=== PATIENT | female | born 2000 | race Caucasian/White ===

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

== ENCOUNTER 2019-12-02 11:55 | Outpatient (REF) | payer OTHER, SELFPAY ==
[2019-12-03 14:46] LABS: Chlamydia Result Negative (Negative); GC Result Negative (Negative)
== END 2019-12-02 12:15 ==
LOC: LBN 11:55
PROVIDERS: PCP Pediatrics; Visit Provider Nurse Practitioner Women's Health
DX: Z11.3 Encounter for screening for infections with a predominantly sexual mode of transmission (principal)
CPT/HCPCS: 87491; 87591

== ENCOUNTER 2020-01-15 12:51 | Outpatient (REF) | payer OTHER, SELFPAY | END 2020-01-15 13:11 | LOC: LBN 12:51 | PROVIDERS: PCP Pediatrics; Visit Provider Nurse Practitioner Family | DX: R35.0 Frequency of micturition (principal) | CPT/HCPCS: 87086 ==

== ENCOUNTER 2020-02-12 12:25 | Outpatient (REF) | payer OTHER, SELFPAY ==
[2020-02-14 18:28] LABS: COVID-19 RT-PCR Result Negative ((See Note))
== END 2020-02-12 12:45 ==
LOC: LBN 12:25
PROVIDERS: PCP Pediatrics; Visit Provider Nurse Practitioner Adult Health
DX: Z11.59 Encounter for screening for other viral diseases (principal)
CPT/HCPCS: U0003

== ENCOUNTER 2020-06-08 11:30 | Outpatient (CLI) | payer OTHER, SELFPAY ==
[2020-06-14 09:50] LABS: COVID-19 RT-PCR UVMMC Result Negative (Negative)
== END 2020-06-08 11:50 ==
PROVIDERS: PCP Pediatrics; Visit Provider Nurse Practitioner Family
DX: Z11.59 Encounter for screening for other viral diseases (principal)
CPT/HCPCS: U0003

== ENCOUNTER 2020-08-05 14:50 | Outpatient (REF) | payer OTHER, SELFPAY ==
[2020-08-05 19:00] LABS: TSH (W/Ref FT4) 0.98 uIU/mL (0.36-3.74)
== END 2020-08-05 14:51 | disposition home or self-care (01) ==
LOC: LBN 14:50
PROVIDERS: PCP Nurse Practitioner Adult Health; Visit Provider Nurse Practitioner Adult Health
DX: F41.9 Anxiety disorder, unspecified (principal)
CPT/HCPCS: 84443

== ENCOUNTER 2021-01-06 14:55 | Outpatient (REF) | payer OTHER, SELFPAY ==
--- NOTE | 2021-01-06 13:20 | PAPFT_PTH ---
PATIENT: Bhavani Kendrick LOC: [facility] U#:[id number] AGE/SX: 20/F ROOM: RE01/06/[address]: GUME Clayton : 2000 BED: DIS: 01/06/2021 SPEC #: [id number] RECD: 01/06/21 17:01 STATUS: RADHA REFabricio #: [id number] AMAN: 01/06/21 13:[address]: Elba Jones DEPT: [facility] Cytology RECD BY: Radha Gonsales ENTERED: 01/06/21 17:01 SP TYPE: PAPFT OTHR DR: Mercedes Dill APRN Tissues: 1 - CX/ENDOCX FOR PAP SMEARS Procedures: PAP THIN PREP/[facility] Screening Comments: [id number]
[2021-01-09 14:05] LABS: Chlamydia Result Negative (Negative); GC Result Negative (Negative)
== END 2021-01-06 14:56 | disposition home or self-care (01) ==
LOC: LBN 14:55
PROVIDERS: PCP Nurse Practitioner Adult Health; Visit Provider Nurse Practitioner Family
DX: Z11.3 Encounter for screening for infections with a predominantly sexual mode of transmission (principal); Z12.4 Encounter for screening for malignant neoplasm of cervix
CPT/HCPCS: 87491; 87591; 88142

== ENCOUNTER 2023-05-27 12:14 | Outpatient (REF) | payer OTHER, SELFPAY | END 2023-05-27 12:15 | disposition home or self-care (01) | LOC: LBN 12:14 | PROVIDERS: PCP Nurse Practitioner Adult Health; Visit Provider Family Medicine | DX: R30.0 Dysuria (principal) | CPT/HCPCS: 87086 ==

== ENCOUNTER 2023-09-09 14:52 | Outpatient (REF) | payer OTHER, SELFPAY ==
[2023-09-09 15:10] LABS: Bilirubin Negative (Negative); Blood Moderate (Negative); Clarity Clear (Clear); Glucose Negative (Negative); Ketones Negative (Negative); Leukocyte Esterase Negative (Negative); Nitrite Negative (Negative); Specific Gravity 1.025 (1.005-1.025); Urobilinogen 0.2 mg/dL (Up to 0.2)
[2023-09-09 15:19] LABS: Bacteria Negative HPF (Negative); C & S Indicated? No; Casts Negative LPF (Negative); Crystals Mod Calcium Oxalate HPF (Negative); Epithelial Cells Few HPF (Negative); Mucus Trace (Negative); WBC Negative HPF (0-5)
== END 2023-09-09 14:53 | disposition home or self-care (01) ==
LOC: LBN 14:52
PROVIDERS: PCP Nurse Practitioner Adult Health; Visit Provider Nurse Practitioner Adult Health
DX: R30.0 Dysuria (principal); R82.998 Other abnormal findings in urine; N32.89 Other specified disorders of bladder
CPT/HCPCS: 81003; 81015

== ENCOUNTER 2023-12-25 13:21 | Outpatient (REF) | payer OTHER, SELFPAY ==
--- NOTE | 2023-12-25 13:15 | PAPFT_PTH ---
PATIENT: Bhavani Kendrick LOC: [facility] U#:[id number] AGE/SX: 23/F ROOM: RE12/25/[address]: Anabell Penn NP : 2000 BED: DIS: 12/25/2023 SPEC #: [id number] RECD: 12/25/23 17:27 STATUS: RADHA REFabricio #: [id number] AMAN: 12/25/23 13:[address]: Anabell Penn NP DEPT: [facility] Cytology RECD BY: Radha Gonsales ENTERED: 12/25/23 17:28 SP TYPE: PAPFT OT DR: Mercedes Dill APRN Tissues: 1 - CX/ENDOCX FOR PAP SMEARS Procedures: PAP THIN PREP/[facility] Screening Comments: [id number]
== END 2023-12-25 13:22 | disposition home or self-care (01) ==
LOC: LBN 13:21
PROVIDERS: PCP Nurse Practitioner Adult Health; Visit Provider Nurse Practitioner Women's Health
DX: N76.0 Acute vaginitis (principal); B37.9 Candidiasis, unspecified
CPT/HCPCS: 88142; 87480; 87510; 87660

== ENCOUNTER 2024-03-15 16:32 | Emergency (ER) | payer OTHER, SELFPAY ==
[2024-03-15] VITALS (7 sets, daily range): BP systolic 106–112; BP diastolic 61–66; PULSE 94–132; RESP 15–33; TEMP 36.7–37.2; O2SAT 98–99
--- OUTSIDE RECORDS SUMMARY | 2024-03-15 16:42 | XMS_ITS | Encounter Summary ---
Author Organization [facility] Address [address] [place] [id number] Care Team Providers Care Medical Research Tech Name Role Phone Mercedes Dill EDISON Primary Care Provider +1 [phone] Encounter Details Date Type Department Care Team (Late st Contact Info) Description 06/08/2020 Lab Requisition [facility] Pathology & Laboratory Medicine - [address] [address] Outr Resulting Lab, Provider Social History Tobacco Use Types Packs/Day Years Used Date Smoking Tobacco: Never Assessed Interpersonal Safety Answer Date Record ed Physically Hurt Never 05/17/2020 Verbally Threaten Not on file 05/17/2020 Sex and Gender Information Value Date Recorded Sex Assigned at Not on file Gender Identity Not on file Sexual Orientation Not on file documented as of this encounter Plan of Treatment Not on file documented as of this encounter Procedures Procedure Name Priority Date/Time Associated Diagnosis Comments ZZCOVID-19 TEST [facility] PCR Today 06/08/2020 9:12 EST COVID-19 TESTING Routine 06/08/2020 9:12 EST documented in this encounter Results * COVID-19 TEST [facility] PCR (06/08/2020 9:12 EST) Swab ENTIRE NASOPHARYNX / Unknown 06/08/2020 9:12 EST 06/08/2020 16:45 EST Provider Outr Resulting Lab MICROBIOLOGY - GENERAL ORDERABLES [facility] [address] [place] [address] * COVID-19 TESTING (06/08/2020 9:12 EST) COVID-19 rt-PCR Result Negative Negative 06/14/2020 9:42 EST [facility] Comment: Negative results do not preclude 2019-nCoV infection and should not be used as the sole basis for treatment or other patient management decisions. Negative results must be combined with clinical observations, patient history, and epidemiological information. This test was developed and its performance characteristics determined by [facility]. It has not been cleared or approved by the US Food and Drug Administration. FDA does not require this test to go through premarket FDA review. This test is used for clinical purposes. It should not be regarded as investigational or for research. This laboratory is certified under the Clinical Laboratory Improvement Amendments (CLIA) as qualified to perform high complexity clinical laboratory testing. This test is based on the CDC COVID-19 Emergency Use Authorization (EUA) assay, with minor modification as defined by the FDA Performed on the DoApp 7 Flex. Performing Lab Quantstud[employer] 7 [facility] Lab 06/14/2020 9:42 EST [facility] Swab 06/08/2020 9:12 EST 06/08/2020 16:45 EST Provider Outr Resulting Lab MICROBIOLOGY - GENERAL ORDERABLES Performing Organization Address City/State/[facility] Co de Phone Number [facility] [address] [place] [address] documented in this encounter Visit Diagnoses Not on filedocumented in this encounter Care Teams Medical Research Tech Relationship Specialty Start Date End Date Mercedes Dill APRN [address] [place] [address] PCP - General Family Medicine - Hospital Medicine 06/24/23 documented as of this encounter
--- OUTSIDE RECORDS SUMMARY | 2024-03-15 16:42 | XMS_ITS | Encounter Summary ---
Author Organization [facility] Address [address] [place] [address] Care Team Providers Care Cloud Developer Name Role Phone Mercedes Dill EDISON Primary Care Provider +1 [phone] Encounter Details Date Type Department Care Team (Late st Contact Info) Description 01/07/2021 Lab Requisition [facility] Pathology & Laboratory Medicine - [address] [id number] Outr Resulting Lab, Provider Social History Tobacco [...] Procedure Name Priority Date/Time Associated Diagnosis Comments CHLAMYDIA/N. GONORRHOEAE AMPLIFIED NUCLEIC ACID Routine 01/06/2021 13:20 EDT documented in this encounter Results * CHLAMYDIA/N. GONORRHOEAE AMPLIFIED RNA (01/06/2021 13:20 EDT) Neisseria gonorrhoeae Result Negative Negative 01/09/2021 13:59 EDT [facility] Chlamydia trachomatis Result Negative Negative 01/09/2021 13:59 EDT [facility] Swab ENTIRE ENDOCERVIX / Unknown 01/06/2021 13:20 EDT 01/07/2021 21:26 EDT Provider Outr Resulting Lab MICROBIOLOGY - GENERAL ORDERABLES [facility] [address] [place] [address] documented in this encounter Visit Diagnoses Not on filedocumented in this encounter Care Teams Cloud Developer Relationship Specialty Start Date End Date Mercedes Dill APRN [address] [place] [address] PCP - General Family Medicine - Hospital Medicine 06/24/23 documented as of this encounter
--- OUTSIDE RECORDS SUMMARY | 2024-03-15 16:42 | XMS_ITS | Referral Summary ---
Author Organization [facility] Address [address] [place] [address] Care Team Providers Care Director Employment Name Role Phone Mercedes Dill GEAR FINISHER Primary Care Provider +1 [phone] Encounters Date Type Department Care Team Description 12/27/2023 Lab Requisition [facility] Pathology & Laboratory Medicine - [address] [address] Anabell Penn APRN Acute vaginitis from Last 3 Months Social History Tobacco Use Types Packs/Day Years Used Date Smoking Tobacco: Never Assessed Interpersonal Safety Answer Date Record ed Physically Hurt Never 05/17/2020 Verbally Threaten Not on file 05/17/2020 Sex and Gender Information Value Date Recorded Sex Assigned at Not on file Gender Identity Not on file Sexual Orientation Not on file Plan of Treatment Not on file Procedures Procedure Name Priority Date/Time Associated Diagnosis Comments PAP TEST Today 12/25/2023 13:15 EDT Acute vaginitis from Last 3 Months Results * PAP TEST (12/25/2023 13:15 EDT) Specimens A. Cervix and/or Endocervix , ThinPrep Imaging System with Manual Evaluation 12/31/2023 14:11 [facility] Specimen Adequacy Satisfactory for Evaluation - transformation zone component present 12/31/2023 14:11 [facility] General Categorization Negative for intraepithelial lesion or malignancy 12/31/2023 14:11 [facility] Descriptive Diagnosis Fungal organisms present morphologically consistent with Diana species. 12/31/2023 14:11 [facility] Attestation . 12/31/2023 14:11 EDT [facility] at 1411 Clinical History See below 12/31/19 14:11 EDT [facility] Performing Lab [facility] 12/31/2023 14:11 EDT [facility] Scanned Images 12/31/2023 14:11 EDT [facility] Pap Test CERVIX UTERI STRUCTURE / Unknown 12/25/2023 13:15 EDT 12/27/2023 15:15 EDT Anabell Penn APRN PATHOLOGY ORDERAB LES [facility] [address] [place] [address] from Last 3 Months Care Teams Director Employment Relationship Specialty Start Date End Date Mercedes Dill APRN [address] [place] [address] PCP - General Family Medicine - [facility] 06/24/23
--- OUTSIDE RECORDS SUMMARY | 2024-03-15 16:42 | XMS_ITS | Encounter Summary ---
Author Organization [facility] Address [address] [place] [address] Care Team Providers Care Registered Nurse Cardiac Name Role Phone Mercedes Dill EDISON Primary Care Provider +1 [phone] Encounter Details Date Type Department Care Team (Late st Contact Info) Description 01/09/2021 Lab Requisition [facility] Pathology & Laboratory Medicine - [address] [address] Elba Jones, [address] [place] [address] Encounter for other general examination Social History Tobacco Use Types Packs/Day Years [...] Date/Time Associated Diagnosis Comments PAP TEST Today 01/06/2021 13:20 EDT Encounter for other general examination documented in this encounter Results * PAP TEST (01/06/2021 13:20 EDT) Specimens A. Cervix and/or Endocervix , ThinPrep Imaging System with Manual Evaluation 01/19/2021 11:41 EDT [facility] Specimen Adequacy Satisfactory for Evaluation - transformation zone component present 01/19/2021 11:41 EDT [facility] General Categorization Negative for intraepithelial lesion or malignancy 01/19/2021 11:41 EDT [facility] Descriptive Diagnosis Reactive cellular changes associated with inflammation present (includes repair). 01/19/2021 11:41 EDT [facility] Attestation By the signature below, the attending physician certifies that they have personally conducted a gross and/or microscopic examination of the described specimens and rendered or confirmed the above diagnosis. 01/19/2021 11:41 EDT [facility] at 1141 Clinical History See below 01/20/20 11:41 EDT [facility] Performing Lab [facility] 01/19/2021 11:41 EDT [facility] Scanned Images 01/19/2021 11:41 EDT [facility] Papanicolaou smear specimen (specimen) CERVIX UTERI STRUCTURE / Unknown 01/06/2021 13:20 EDT 01/09/2021 11:13 EDT Elba Jones TECHNICAL ACCOUNT MANAGER PATHOLOGY ORDERABLES [facility] [address] [place] [address] documented in this encounter Visit Diagnoses Diagnosis Encounter for other general examination documented in this encounter Care Teams Registered Nurse Cardiac Relationship Specialty Start Date End Date Mercedes Dill APRN [address] [place] [address] PCP - General Family Medicine - Hospital Medicine 06/24/23 documented as of this encounter
--- OUTSIDE RECORDS SUMMARY | 2024-03-15 16:42 | XMS_ITS | Encounter Summary ---
Author Organization [facility] Address [address] [place] [address] Care Team Providers Care Inventory Clerk Name Role Phone Mercedes Dill EDISON Primary Care Provider +1 [phone] Encounter Details Date Type Department Care Team (Late st Contact Info) Description 02/12/2020 Lab Requisition [facility] Pathology & Laboratory Medicine - [address] [id number] Outr Resulting Lab, Provider Social History Tobacco Use Types Packs/Day Years Used Date Smoking Tobacco: Never Assessed Sex and Gender Information Value Date Recorded Sex Assigned at Not on file Gender Identity Not on file Sexual Orientation Not on file documented as of this encounter Plan of Treatment Not on file documented as of this encounter Procedures Procedure Name Priority Date/Time Associated Diagnosis Comments DO NOT ORDER STANDALONE - BROAD COVID TEST Today 02/12/2020 11:15 EDT COVID-19 TESTING Routine 02/12/2020 11:1 5 EDT documented in this encounter Results * DO NOT ORDER STANDALONE - BROAD COVID TEST (02/12/2020 11:15 EDT) Swab ENTIRE NASOPHARYNX / Unknown 02/12/2020 11:15 EDT 02/12/2020 20:58 EDT Provider Outr Resulting Lab MICROBIOLOGY - GENERAL ORDERABLES [facility] [place], [place] * COVID-19 TESTING (02/12/2020 11:15 EDT) COVID-19 rt-PCR Result Negative Not Detected, Negative 02/14/2020 18:24 EDT [facility] Performing Lab [facility] 02/14/2020 18:24 EDT [facility] Swab 02/12/2020 11:1 5 EDT 02/12/2020 20:58 EDT Provider Outr Resulting Lab MICROBIOLOGY - GENERAL ORDERABLES Performing Organization Address City/State/[facility] Co de Phone Number [facility] [address] [place] [address] documented in this encounter Visit Diagnoses Not on filedocumented in this encounter Care Teams Inventory Clerk Relationship Specialty Start Date End Date Mercedes Dill APRN [address] [place] [address] PCP - General Family Medicine - Hospital Medicine 06/24/23 documented as of this encounter
--- OUTSIDE RECORDS SUMMARY | 2024-03-15 16:42 | XMS_ITS | Encounter Summary ---
Author Organization [facility] Address [address] [place] [address] Care Team Providers Care Rail Maintenance Worker Name Role Phone Mercedes Dill EDISON Primary Care Provider +1 [phone] Encounter Details Date Type Department Care Team (Late st Contact Info) Description 12/02/2019 Lab Requisition [facility] Pathology & Laboratory Medicine - [address] [address] Outr Resulting Lab, Provider Social History Tobacco [...] Comments CHLAMYDIA/N. GONORRHOEAE AMPLIFIED NUCLEIC ACID Routine 12/02/2019 10:07 EDT documented in this encounter Results * CHLAMYDIA/N. GONORRHOEAE AMPLIFIED RNA (12/02/2019 10:07 EDT) Neisseria gonorrhoeae Result Negative Negative 12/03/2019 14:41 EDT [facility] Chlamydia trachomatis Result Negative Negative 12/03/2019 14:41 EDT [facility] Urine URINE / Unknown 12/02/2019 1 0:07 EDT 12/02/2019 21:12 EDT Narrative [facility] - 12/03/2019 14:41 EDT A first catch urine specimen is acceptable for detection of Gonorrhea and Chlamydia, but might detect up to 10% fewer infections when compared with vaginal and endocervical swab samples. Provider Outr Resulting Lab MICROBIOLOGY - GENERAL ORDERABLES [facility] [address] [place] [address] documented in this encounter Visit Diagnoses Not on filedocumented in this encounter Care Teams Rail Maintenance Worker Relationship Specialty Start Date End Date Mercedes Dill APRN [address] [place] [id number] PCP - General Family Medicine - Hospital Medicine 06/24/23 documented as of this encounter
--- OUTSIDE RECORDS SUMMARY | 2024-03-15 16:42 | XMS_ITS | Encounter Summary ---
Author Organization [facility] Address [address] [place] [address] Care Team Providers Care Glass Polisher Name Role Phone Mercedes Dill [employer] SUPERINTENDENT Primary Care Provider +1 [phone] Encounter Details Date Type Department Care Team (Late st Contact Info) Description 12/27/2023 Lab Requisition [facility] Pathology & Laboratory Medicine - [address] [address] Anabell Penn APRN [address] [place] [phone] Acute vaginitis Social History Tobacco Use Types Packs/Day Years [...] TEST Today 12/25/2023 13:15 EDT Acute vaginitis documented in this encounter Results * PAP TEST (12/25/2023 13:15 EDT) Specimens A. Cervix and/or Endocervix , ThinPrep Imaging System with Manual Evaluation 12/31/2023 14:11 EDT [facility] Specimen Adequacy Satisfactory for Evaluation - transformation zone component present 12/31/2023 14:11 EDT [facility] General Categorization Negative for intraepithelial lesion or malignancy 12/31/2023 14:11 EDT [facility] Descriptive Diagnosis Fungal organisms present morphologically consistent with Diana species. 12/31/2023 14:11 EDT [facility] Attestation . 12/31/2023 14:11 EDT [facility] at 1411 Clinical History See below 12/31/19 14:11 EDT [facility] Performing Lab [facility] 12/31/2023 14:11 EDT [facility] Scanned Images 12/31/2023 14:11 EDT [facility] Pap Test CERVIX UTERI STRUCTURE / Unknown 12/25/2023 13:15 EDT 12/27/2023 15:15 EDT Merritt A Isamar [employer] SUPERINTENDENT PATHOLOGY ORDERAB LES [facility] [address] [place] [address] documented in this encounter Visit Diagnoses Diagnosis Acute vaginitis Vaginitis and vulvovaginitis, unspecified documented in this encounter Care Teams Glass Polisher Relationship Specialty Start Date End Date Mercedes Dill, [employer] SUPERINTENDENT [address] [place] [address] PCP - General Family Medicine - Hospital Medicine 06/24/23 documented as of this encounter
--- OUTSIDE RECORDS SUMMARY | 2024-03-15 16:42 | XMS_ITS | Clinical Summary ---
Author Organization [facility] Address [address] [place] [address] Care Team Providers Care Ice Guard Skating Rink Name Role Phone Mercedes Dill [employer] CONSULTANT Primary Care Provider +1 [phone] Encounters Date Type Department Care Team Description 12/27/2023 Lab Requisition [facility] Pathology & Laboratory Medicine - [address] [address] Anabell Penn APRN Acute vaginitis from Last [...] Orientation Not on file Plan of Treatment Health Maintenance Due Date Last Done Comments Hepatitis C Screen 2000 Hepatitis B Vaccine (1 of 3 - 19+ 3-dose series) 08/17 COVID-19 Vaccine ( season) 2023 Procedures Procedure Name Priority Date/Time Associated Diagnosis Comments PAP TEST Today 12/25/2023 13:15 EDT Acute vaginitis from Last 3 Months Results * PAP TEST (12/25/2023 13:15 EDT) Specimens A. Cervix and/or Endocervix , ThinPrep Imaging System with Manual Evaluation 12/31/2023 14:11 EDT [facility] Specimen Adequacy Satisfactory for Evaluation - transformation zone component present 12/31/2023 14:11 EDT [facility] General Categorization Negative for intraepithelial lesion or malignancy 12/31/2023 14:11 EDT [facility] Descriptive Diagnosis Fungal organisms present morphologically consistent with Diana species. 12/31/2023 14:11 EDT [facility] Attestation . 12/31/2023 14:11 EDT [facility] at 1411 Clinical History See below 12/31/19 14:11 EDT [facility] Performing Lab [facility] 12/31/2023 14:11 EDT [facility] Scanned Images 12/31/2023 14:11 EDT [facility] Pap Test CERVIX UTERI STRUCTURE / Unknown 12/25/2023 13:15 EDT 12/27/2023 15:15 EDT Anabell Penn APRN PATHOLOGY ORDERAB LES [facility] [address] [place] [address] from Last 3 Months Care Teams Ice Guard Skating Rink Relationship Specialty Start Date End Date Mercedes Dill APRN [address] [place] [address] PCP - General Family Medicine - [facility] 06/24/23
--- NOTE | 2024-03-15 17:00 | RT.EKG_ITS ---
APPROVED REPORT Exam: Resting ECG Reason for Exam: tachy Patient Location: E HR:102 bpm ECG Measurements Heart Rate 102 AXIS ME 115 P 41 QRSd 76 QRS 68 QT 314 T 38 QTc 411 Conclusion Sinus tachycardia...rate> 99 sinus tach, normal axis, non ischemic
--- NOTE | 2024-03-15 17:45 | DI.RAD_ITS ---
Exam(s) XR CHEST 2V PA LATERAL EXAM: XR CHEST 2V PA LATERAL CLINICAL HISTORY: cough TECHNIQUE: 2D digital imaging was performed of the chest. Two images were obtained. PA and lateral views were obtained. COMPARISON: CR CHEST 2 VIEWS PA,LAT from 01/27/2015 FINDINGS: MEDIASTINUM: Normal. HEART: Normal. PULMONARY VASCULATURE: Normal. LUNGS: Clear. PLEURAL SPACE: No pleural effusion or pneumothorax. BONE:Within normal limits for the patient's age. OTHER FINDINGS:Normal. IMPRESSION: No acute pulmonary findings. DATA REPOSITORY: RADIATION DOSE DELIVERED:
--- NOTE | 2024-03-15 18:05 | ED.GENADUL_ITS ---
Discharge Plan Disposition Patient Disposition: Home Condition: Improving Discharge Details Chief Complaint: RespSymp Clinical Impression: URI (upper respiratory infection) Primary Care Provider: Mercedes Dill ED Provider: Caesar Raymundo Home Meds and New Rx's Prescriptions: No Action albuterol sulfate [ProAir HFA] 90 mcg/actuation HFA aerosol inhaler 2 puff Inhalation Q4H PRN Qty: 1 4RF Rx Instructions: 2 puffs with spacer every 4hr as needed for cough/wheeze benzonatate 100 mg capsule 100 mg PO BID-TID PRN (Reason: cough) Qty: 20 0RF codeine-guaifenesin 10-100 mg/5 mL liquid 5 ml PO Q6H PRN (Reason: cough) Qty: 118 0RF prednisone 10 mg tablet 10 mg PO DAILY 5 Days Qty: 5 0RF Patient Comments: pt started this med today (DME) Aerochamber Plus Flow-Vu 1 EACH spacer 1 ea Miscellaneous PRN Qty: 2 Patient Comments: Please dispense #2- 1 for mom's and 1 for dad's households. Any brand. Mouthpiece OK- doesn't need mask. Rx Instructions: Use with inhalers. Nexplanon 68 MG implant 68 mg SQ ONCE Qty: 1 doxepin 6 mg tablet 3 - 6 mg PO QHS PRN (Reason: sleep) Qty: 90 1RF Rx Instructions: Sleep difficulty--take within 30-min of bedtime; may start with 3mg and increase if needed Discharge Instructions Instructions: Upper Respiratory Infection ED Additional Instructions: Please follow-up with your primary care physician. Please return to the emergency department for any worsening symptoms HPI General Date/Time Provider Initiated Documentation: 03/15/24 17:02 . HPI Narrative: 23-year-old female presents with 1 week of nasal congestion cough nonproductive diagnosis viral syndrome, developed hives this evening now resolved. No trouble breathing or speaking. Patient endorses chronic tachycardia related to chronic anxiety. Denies history of thromboembolic disease denies history of coronary disease. Related Data Home Medications ?Medication ?Instructions ?Recorded ?Confirmed inhalational spacing device #2 units 11/19/14 03/15/24 (Aerochamber Plus Flow-Vu) etonogestrel 68 mg subdermal 68 mg SQ ONCE #1 implant 11/13/16 03/15/24 implant (Nexplanon) albuterol sulfate 90 mcg/actuation 2 puff inhalation Q4H PRN ##1 05/27/23 03/15/24 aerosol inhaler (ProAir HFA) doxepin 6 mg tablet 3 - 6 mg (0.5 - 1 x 6 mg) PO QHS 06/27/23 03/15/24 PRN sleep #90 tabs benzonatate 100 mg capsule 100 mg PO BID-TID PRN cough #20 03/11/24 03/15/24 caps codeine 10 mg-guaifenesin 100 mg/5 5 ml PO Q6H PRN cough #118 mL 03/13/24 03/15/24 mL oral liquid prednisone 10 mg tablet 10 mg PO DAILY 5 days #5 tabs 03/13/24 03/15/24 Previous Rx's ?Medication ?Instructions ?Recorded albuterol sulfate 90 mcg/actuation 2 puff inhalation Q4H PRN ##1 05/27/23 aerosol inhaler (ProAir HFA) doxepin 6 mg tablet 3 - 6 mg (0.5 - 1 x 6 mg) PO QHS 06/27/23 PRN sleep #90 tabs benzonatate 100 mg capsule 100 mg PO BID-TID PRN cough #20 03/11/24 caps codeine 10 mg-guaifenesin 100 mg/5 5 ml PO Q6H PRN cough #118 mL 03/13/24 mL oral liquid prednisone 10 mg tablet 10 mg PO DAILY 5 days #5 tabs 03/13/24 Allergies Allergy/AdvReac Type Severity Reaction Status Date / Time trazodone AdvReac Severe Headache Verified 03/13/24 13:23 General Stated Complaint: RespSymp ANITA: 3 Exam Narrative Exam Narrative: Alert oriented resting comfortably Sinus congestion Normal speech swelling secretions Lungs clear bilaterally no wheezes rales or rhonchi, no tachypnea no retractions no stridor Normal heart sounds no murmurs rubs or gallops, rate approximate 100 bpm Moving all extremities without deficit no peripheral edema Calm cooperative normal affect Course Vital Signs Vital signs: Vital Signs Temperature 37.2 C 03/15/24 16:47 Pulse 132 H 03/15/24 16:47 Respiratory Rate 16 03/15/24 16:47 Blood Pressure 106/66 03/15/24 16:47 Pulse Oximetry 98 03/15/24 16:47 Temperature 37.2 C 03/15/24 16:47 Pulse 132 H 03/15/24 16:47 Respiratory Rate 16 03/15/24 16:47 Respiratory Effort Normal, Non-Labored 03/15/24 17:58 Respiratory Depth Normal 03/15/24 17:58 Blood Pressure 106/66 03/15/24 16:47 Pulse Oximetry 98 03/15/24 16:47 Pain Level 0 03/15/24 16:47 Medical Decision Making 23-year-old female presents with nasal congestion cough over the last week, noted to be tachycardic on arrival patient endorses chronic tachycardia related to anxiety, heart rate initially 130 at triage now 100 bpm in room, sinus rhythm on EKG normal axis normal intervals nonischemic. No chest pain no shortness of breath no peripheral edema no leg swelling no leg pain. Likely viral URI versus early bacterial pneumonia lower suspicion for ACS PE aortic pathology pneumothorax given history and physical. Trial of nebs steroids basic labs chest x-ray close reassessment 20: 21 patient resting comfortably feeling better after meds. No acute distress. X-ray clear no leukocytosis. No tachypnea no hypoxia. Will repeat vitals now the patient is comfortable. Home care instructions and return precautions Quality:SDOH Health Related Social Needs: No Data to Display PFSH All Active Problems (Updated 03/15/24 @ 20:23 by Caesar Raymundo MD) URI (upper respiratory infection) (Acute) Viral upper respiratory illness (Acute) Calcium oxalate crystals in urine (Acute) Breast tenderness in female (Acute) Difficulty staying asleep (Acute ~06/2022) Trial Trazodone Post-traumatic stress disorder (Chronic ~2020) Major depressive disorder in partial remission (Acute ~2020) ADHD (attention deficit hyperactivity disorder), combined type (Acute ~2020) Anxiety (Chronic ~2020) Citalopram ?Disordered eating/bulimia Poor self-esteem Contraception (Chronic 03/19/23) LARC--Nexplanon Asthma (Chronic 04/01/12) Illness-triggered; Albuterol PRN Surgical History Tonsillectomy Family History Mother Mental disorder depression or anxiety Prediabetes Father ADHD Maternal Grandfather Diabetes Sister Depression Social History Smoking/Tobacco Use Status: Never Smoking risk assessment performed?: Yes Alcohol Intake: current Alcohol Intake frequency: a few times a month Drug use: Never Adopted: No Caregiver/Support person: No Foster care: No Household members: family and other Details: College Roommates Housing: apartment Number of Children: 0 Communication Needs: Corrective Lenses Education Level: college Details: Current Do you need help understanding health information?: Never current occupation: Student in college studying [employer] Pets and animals: Yes (2 cats, 1 dog) Pets and animals: cat(s) and dog(s) Sexually active: Yes Do you think of yourself as: bisexual Current gender identity: neither exclusively male nor female Other: Non-binary & prefers pronouns they/them What is your relationship status?: never How often do you talk on the phone with friends or family?: three or more times per week How often do you get together with friends or relatives?: three or more times per week Do you belong to any clubs or organized social groups?: no Panel score (0-1 are the most socially isolated patients): 1 What type of physical activity do you participate in: regular exercise Duration: 15-30 minutes/day Frequency: 3-4 times per week Seatbelt use: always Helmet use: Yes Drive intox or ride w/intox [employer] truck driver: No Do you feel safe in your relationship?: Yes Female Reproductive History Menstrual Age of Menarche: 12 control method: implanted History History 0 Para Hx # Term Pregnancies Multiple births Hx # Pregnancies Ectopic pregnancies AB induced Hx Number of Living Children AB spontaneous
[2024-03-15] MEDS: Dexamethasone 10 MG/ML VIAL IVP (18:15)
[2024-03-15] MEDS: Normal Saline 1,000 ML 1000 ML IV (18:15)
[2024-03-15] MEDS: Albuterol/Ipratropium 3 ML UPD VIAL UPD (18:15)
[2024-03-15 18:16] LABS: Abs Immature Grans 0.03 10^3/uL (0.0-0.06); Absolute Basophil Count 0.02 10^3/uL (0.0-0.2); Absolute Lymphocyte Count 2.13 10^3/uL (1.2-3.4); Absolute Neutrophil Count 5.84 10^3/uL (1.2-6.7); Basophils % 0.2 %; Eosinophils % 1.1 %; HGB 13.3 g/dL (11.2-15.7); Immature Grans % 0.3 %; Lymphocytes % 24.1 %; MCH 27.5 pg (27.0-33.0); MCHC 31.7 % (32.0-36.0); MCV 87 fL (80-95); MPV 8.7 fL (8.0-11.0); Monocytes % 7.9 %; Neutrophils % 66.4 %; Platelet Count 200 10^3/uL (130-400); RBC 4.84 10^6/uL (3.93-5.22); RDW 11.4 % (11.7-14.6); RDW-SD 36.5 fL; WBC 8.82 10^3/uL (4.4-10.8)
[2024-03-15 18:28] LABS: Bilirubin Negative (Negative); Blood Trace-lysed (Negative); Clarity Clear (Clear); Glucose Negative (Negative); Ketones Negative (Negative); Leukocyte Esterase Negative (Negative); Nitrite Negative (Negative); Urobilinogen 0.2 mg/dL (Up to 0.2)
[2024-03-15 18:31] LABS: ALT 27 U/L (14-59); AST 17 U/L (15-37); Albumin 3.7 g/dL (3.4-5.0); Alkaline Phosphatase 66 U/L (46-116); Anion Gap 11.1 mmol/L (3-11); BUN 8 mg/dL (7-18); Bilirubin, Total 0.21 mg/dL (0.2-1.0); CO2 26.9 mmol/L (21.0-32.0); Chloride 103 mmol/L (98-107); Potassium 3.6 mmol/L (3.5-5.1); Sodium 141 mmol/L (136-145); Total Protein 7.4 g/dL (6.4-8.2)
[2024-03-15 18:39] LABS: CREATININE 0.6 mg/dL (0.55-1.02); Estimated GFR 128.46 (mL/min/1.73m2); Glucose 92 mg/dL (74-106)
[2024-03-15 18:41] LABS: Bacteria Moderate HPF (Negative); C & S Indicated? No/Sq. Contamination; Casts Negative LPF (Negative); Crystals Negative HPF (Negative); Epithelial Cells Moderate HPF (Negative); Mucus Negative (Negative); RBC 0-2 HPF (0-2); WBC 0-2 HPF (0-5)
--- NOTE | 2024-03-15 20:00 | DI.VRAD_ITS ---
PROCEDURE INFORMATION: Exam: XR Chest Exam date and time: 03/15/2024 6:43 PM Age: 23 years old Clinical indication: Cough TECHNIQUE: Imaging protocol: Radiologic exam of the chest. Views: 2 views. COMPARISON: No relevant prior studies available. FINDINGS: Lungs: Lungs are clear with no infiltrate or nodule. Pleural spaces: Unremarkable. No pleural effusion. No pneumothorax. Heart/Mediastinum: Cardiomediastinal silhouette is normal. Bones/joints: Unremarkable. IMPRESSION: No active cardiopulmonary disease. Dictated and Authenticated by: Steve Miller MD. Ordering:JESSE Maynard MD
== END 2024-03-15 20:39 | disposition home or self-care (01) ==
PROVIDERS: Emergency Provider Emergency Medicine; PCP Nurse Practitioner Adult Health
DX: J06.9 Acute upper respiratory infection, unspecified (principal); R00.0 Tachycardia, unspecified; L50.9 Urticaria, unspecified
CPT/HCPCS: 36415; 80053; 81025; 93005; 94640; 96361; 96374; 99285; 71046; 81003; 81015; 85025; 93010; 99284; J1100; J7620

== ENCOUNTER 2025-05-13 14:20 | Outpatient (REF) | payer OTHER, SELFPAY ==
[2025-05-14 11:09] LABS: Chlamydia Result Negative (Negative); GC Result Negative (Negative)
== END 2025-05-13 14:21 | disposition home or self-care (01) ==
LOC: LBN 14:20
PROVIDERS: PCP Nurse Practitioner Adult Health; Visit Provider Obstetrics & Gynecology
DX: Z70.8 Other sex counseling (principal)
CPT/HCPCS: 87491; 87591; 87480; 87510; 87660

== ENCOUNTER 2025-05-13 16:09 | Outpatient (CLI) | payer OTHER, SELFPAY ==
[2025-05-14 11:23] LABS: HIV-1/2 Ag & Ab Screen Negative (Negative)
[2025-05-14 11:28] LABS: HBs Antibody, Qual Positive (See Note); HBs Antibody, Quant 202.4 mIU/mL (See Note); Hepatitis C Ab w Rflx HCV PCR Negative (Negative)
[2025-05-14 11:42] LABS: Syphilis Serology (RPR) Negative (Negative)
== END 2025-05-13 16:10 | disposition home or self-care (01) ==
LOC: LBO 16:09
PROVIDERS: PCP Nurse Practitioner Adult Health; Visit Provider Obstetrics & Gynecology
DX: Z11.3 Encounter for screening for infections with a predominantly sexual mode of transmission (principal)
CPT/HCPCS: 36415; 86704; 86706; 86803; 87340; 87389; 86592